=== PATIENT | female | born 1940 | race Caucasian/White ===

== ENCOUNTER 2023-07-21 11:25 | Emergency (ER) | payer MEDICARE, SELFPAY ==
--- NOTE | ~2023-07-21 | XR_ITS ---
XR ankle RT min 3V DATE: 07/21/2023 11:59 INDICATION: Anteromedial pain, swelling. No known injury. TECHNIQUE: 4 views COMPARISON: None FINDINGS: There is diffuse soft tissue swelling of the ankle. No fracture or dislocation of the ankle or disruption of the ankle mortise. No periosteal reaction or bone destruction. Mild plantar and posterior calcaneal enthesopathy. IMPRESSION: Generalized soft tissue swelling Reviewed, dictated and finalized at location [facility]. [facility] [employer]
[2023-07-21 11:35] VITALS: BP 125/53; PULSE 94; RESP 16; TEMP 36.5; O2SAT 96
--- NOTE | 2023-07-21 11:50 | PC.NURSE ---
to xray via [place] by [employer] [facility]
--- NOTE | 2023-07-21 12:07 | ED.LOWEXIN ---
HPI - Extremity Injury (Lower) General Chief Complaint: Extremity Injury, Lower Stated Complaint: Right Foot Injury History of Present Illness HPI Narrative: Patient presents with right foot pain. Patient denies any re-injury to the foot. Patient states she started with redness to the foot and went to an urgent care and was started on doxycycline but instructed that they could not rule out a DVT to the lower extremity. Patient later the went to the emergency room and had a negative ultrasound and was told to continue doxycycline. Patient has also been followed by her primary care provider and told her to continue the doxycycline. Patient presents today having been on the doxycycline for 48 hours that she has increased redness and swelling to the right lower extremity. Related Data Home Medications Medication Instructions Recorded Confirmed albuterol sulfate 90 mcg/actuation inhalation 07/21/23 aerosol inhaler atorvastatin 40 mg tablet mg 07/21/23 clopidogrel 75 mg tablet mg 07/21/23 doxycycline hyclate 100 mg capsule mg 07/21/23 levothyroxine 88 mcg tablet mcg 07/21/23 tramadol 50 mg tablet mg 07/21/23 umeclidinium 62.5 mcg-vilanterol inhalation 07/21/23 25 mcg/actuation powdr for inhalation (Anoro Ellipta) Allergies Allergy/AdvReac Type Severity Reaction Status Date / Time Penicillins Allergy Intermediate Hives / Unverified 10/30/14 14:03 Red Face tetanus immune globulin Allergy Intermediate Unverified 10/30/14 14:03 Review of Systems Review of Systems: CONSTITUTIONAL: Denies fever, chills, or sweats. EYES: Denies visual changes, redness, or discharge. ENT: Denies rhinorrhea, congestion, sore throat, or otalgia. CARDIOVASCULAR: Denies chest pain, palpitations, or edema. RESPIRATORY: Denies cough or dyspnea. GASTROINTESTINAL: Denies abdominal pain, nausea, vomiting, or diarrhea. GENITOURINARY: Denies dysuria or hematuria. SKIN: Denies rash or itching. MUSCULOSKELETAL: Denies back pain, joint pain, or myalgia. NEUROLOGIC: Denies headache, numbness, or weakness. PSYCHIATRIC: Denies anxiety or depression. PMFSH Comments At time of signature, agree with nursing past medical, surgical, social and family history. There is no relevant family history pertinent to the presenting complaint Exam Narrative: GENERAL: Well-appearing, well-nourished, and in no acute distress. HEAD: Normocephalic, atraumatic. EYES: PERRLA and EOMI. ENT: Nares clear, no rhinorrhea or epistaxis. Mucous membranes moist. NECK: Supple. CHEST: Clear to auscultation. No respiratory distress. HEART: Regular rate and rhythm. No murmur heard. Normal peripheral pulses. ABDOMEN: Soft, nontender, nondistended, normal active bowel sounds. EXTREMITIES: Normal range of motion. No edema. SKIN: Warm, dry, no rash. Top of right foot 2 cm area with redness, tender to touch no streaking no drainage noted. NEURO: No focal deficits. Alert and oriented x3. Rip Coma Scale Eye Opening: Spontaneous 4 Rip Coma Scale Motor: Obeys Commands 6 Rip Coma Scale Verbal: Oriented 5 Rip Coma Scale Total 15 Course Course Level of Care: Express Care Visit Vital Signs Vital signs: Vital Signs Temperature 36.5 C 07/21/23 11:35 Pulse Rate 94 07/21/23 11:35 Respiratory Rate 16 07/21/23 11:35 Blood Pressure 125/53 L 07/21/23 11:35 Pulse Oximetry 96 07/21/23 11:35 Oxygen Delivery Room Air 07/21/23 11:35 Temperature 36.5 C 07/21/23 11:35 Pulse Rate 94 07/21/23 11:35 Respiratory Rate 16 07/21/23 11:35 Blood Pressure 125/53 L 07/21/23 11:35 Pulse Oximetry 96 07/21/23 11:35 Oxygen Delivery Room Air 07/21/23 11:35 Discharge Plan Discharge Clinical Impression: Contusion of foot, right Patient Disposition: Home, Self-Care Condition: Stable Instructions: Foot Contusion (ED) Additional Instructions: Ice to the area 20-30 minutes 4-6 times a day Elevate above he
== END 2023-07-21 12:57 | disposition home or self-care (01) ==
PROVIDERS: Emergency Provider Nurse Practitioner Family; PCP Family Medicine
DX: S90.31XA Contusion of right foot, initial encounter (principal); Z79.899 Other long term (current) drug therapy; X58.XXXA Exposure to other specified factors, initial encounter
CPT/HCPCS: 73610; 99213; G0463

== ENCOUNTER 2024-11-11 10:17 | Outpatient (CLI) | payer MEDICARE, SELFPAY ==
--- OUTSIDE RECORDS SUMMARY | 2024-11-11 11:27 | XMS_ITS | Encounter Summary ---
Author Organization [facility] Address [address] [place] [address] Care Team Providers Care Home Visit Field Care Manager Name Role Phone Unavailable Primary Care Provider Unavailabl e Encounter Details Date Type Department Care Team (Late st Contact Info) Description 08/28/2023 Lab Requisition [facility] - DermPath Lab [address] [place] [id number] Steve Ambriz Jr., MD [address] [place] [address] Social History Tobacco Use Types Packs/Day Years Used Date Smoking Tobacco: Never Assessed Comments Unknown Sex and Gender Information Value Date Recorded Sex Assigned at Not on file Legal Sex Female 11:18 AM [employer] Gender Identity Not on file Sexual Orientation Not on file documented as of this encounter Plan of Treatment Not on file documented as of this encounter Procedures Procedure Name Priority Date/Time Associated Diagnosis Comments DERMATOPATHOLOGY Routine 08/27/2023 3:33 AM [employer] documented in this encounter Results * DERMATOPATHOLOGY (08/27/2023 3:33 AM [employer]) Case Report Dermatopathology Report Case: [id number] Authorizing Provider: Steve Ambriz Jr., MD Collected: 08/27/2023 03:33 AM Ordering Location: [facility] Lab Received: 08/28/2023 11:56 AM Pathologist: Ivonne Rogers MD Specimen: Skin, right middle finger distal interphalangeal joint 2:49 PM [facility] Final Diagnosis Specimen A. SKIN, right middle finger distal interphalangeal joint: DIGITAL MYXOID (MUCOUS) CYST (M67.40) 2:49 PM [facility] Clinical History Digital Mucous Cyst vs wart,ISK. 4 2:49 PM [facility]MAT[facility] Gross Description Specimen A: Received is one formalin filled container labeled with the patient's name and designated right middle finger distal interphalangeal joint. The specimen consists of a shave biopsy measuring 6x5x1 mm. Jar 0. 4 2:49 PM [facility]ERMATOPATHOLOGY [facility] Microscopic Description Specimen A. SKIN, right middle finger distal interphalangeal joint: There is mucinous degeneration of the superficial dermis with minimal inflammation. 4 2:49 PM [facility]MATOPATH[facility] Disclaimer An external and internal positive and negative controls are appropriate for the histochemical, immunohistochemical and immunofluorescence stain(s) in this case (if any), except where stated explicitly. The performance characteristics of the stain(s) cited in this report were developed and its performance characteristic determined by the Dermatopathology Laboratory at [facility], directed by Dr. Cece Queen. These tests need not be, and therefore are not, approved by the [place] Food and Drug Administration. The tests are used for clinical purposes. Billing Codes Specimen Charges Stain Charges 33547 1 4 2:49 PM [facility]MAT[facility]ATH[facility] Embedded Images 4 2:49 PM [facility] Pathology/Cytolo gy TISSUE SPECIMEN FROM SKIN / Unknown 08/27/2023 3:33 AM [employer] 08/28/2023 11:56 AM [employer] Steve Ambriz Jr., MD LAB - PATHOLOGY/CYTOLOG Y ORDERABLES Final Result DERMATOPATHOLOGY LABORATORY [facility] - Department of Dermatology [address] [phone] documented in this encounter Visit Diagnoses Not on filedocumented in this encounter
--- OUTSIDE RECORDS SUMMARY | 2024-11-11 11:27 | XMS_ITS ---
Author Name Auto Generated, Auto Generated Organization [facility] Address [address] [place] [address] Phone [phone] Care Team Providers Care Survey Field Technician Name Role Phone Val Hart Unavailable Marcia Pugh Unavailable Fortunato Campo Unavailable [phone] Functional Status No Results Mental Status No Results Allergies and Intolerances Name Onset Date Reaction Severity Tetanus Vaccines and Toxoid (Allergy) SatMar 04 18:32:00 EDT 2023 Penicillins (Allergy) SatMar 04 18:32:00 EDT 20 24 magnesium sulfate (bulk) (Allergy) SatMar 04 18 :32:00 EDT 2023 Encounters Program Name Primary Diagnosis Admission Date/Time Dis charge Date/Time [facility] SatMar 04 14:00:00 EDT 2023Mar 25 11:30:00 EDT 2023 Medications Medication Directions Start Date End Date Stimulant Laxative Plus 8.6 mg-50 mg tablet 1 tablet TABLET Oral PRN Every 2 Days Indication: Constipation SatMar 17 18:31:00 EDT 2023Mar 25 01:00:00 EDT 2023 HYDROcodone 5 mg-acetaminophen 325 mg tablet 1 tablet TABLET Oral PRN Every 4 Hours Indication: Pain SatMar 10 17:00:00 EDT 2023Mar 25 01:00:00 EDT 2023 furosemide 20 mg tablet 1 tablet TABLET Oral 1 Time Daily for 1 Day Indication: Edema SatMar 09 07:00:00 ED2023Mar 10 06:59:00 EDT 2023 furosemide 20 mg tablet 1 tablet TABLET Oral 1 Time Daily for 2 Days Indication: Edema SatMar 10 07:00:00 EDT 2023Mar 12 06:59:00 ED2023 potassium chloride ER 10 mEq tablet,extended release 1 tablet TABLET, EXTENDED RELEASE Oral 1 Time Daily for 1 Day Indication: Supplement SatMar 09 07:00:00 EDT 2023Mar 10 06:59:00 EDT 2023 potassium chloride ER 10 mEq tablet,extended release 1 tablet TABLET, EXTENDED RELEASE Oral 1 Time Daily for 2 Days Indication: Supplement SatMar 10 07:00:00 EDT 2023Mar 12 06:59:00 EDT 2023 vitamin E acetate 134 mg (200 unit) capsule 1 capsule CAPSULE Oral 1 Time Daily Indication: Supplement SatMar 07 15:00:00 ED2023Mar 25 01:00:00 ED2023 ferrous sulfate 325 mg (65 mg iron) tablet,delayed release 1 tablet TABLET, DELAYED RELEASE (ENTERIC COATED) Oral 1 Time Daily Indication: Anemia *TAKE WITH FOOD* SatMar 05 12:00:00 ED2023Mar 25 01:00:00 ED2023 Ventolin HFA 90 mcg/actuation aerosol inhaler 2 puffs HFA AEROSOL WITH ADAPTER (GRAM) Inhalation PRN Every 4 Hours Indication: Wheezing/SOB SatMar 04 18:30:00 2023Mar 25 01:00:00 ED2023 ascorbic acid (vitamin C) 500 mg capsule 1 capsule CAPSULE Oral 1 Time Daily Indication: Supplement SatMar 04 18:30:00 2023Mar 25 01:00:00 ED2023 aspirin 81 mg tablet,delayed release 1 tablet TABLET, DELAYED RELEASE (ENTERIC COATED) Oral 2 Times Daily for 53 Days Indication: Blood thinner. Take until 04/26/24 then resume once per day and plavix SatMar 04 17:00:00 2023Mar 25 01:00:00 2023 cetirizine 10 mg tablet 1 tablet TABLET Oral 1 Time Daily Indication: Allergies SatMar 04 18:42:00 2023Mar 25 01:00:00 2023 clopidogreL 75 mg tablet 1 tablet TABLET Oral 1 Time Daily Indication: DVT prophylaxis SatMar 04 18:40:00 2023Mar 25 01:00:00 EDT 2023 cyanocobalamin (vit B-12) 1,000 mcg tablet 1 tablet TABLET Oral 1 Time Daily Indication: Supplement SatMar 04 18:40:00 EDT 2023Mar 25 01:00:00 EDT 2023 ferrous sulfate 325 mg (65 mg iron) tablet,delayed release 1 tablet TABLET, DELAYED RELEASE (ENTERIC COATED) Oral 1 Time Daily Indication: Anemia SatMar 04 18:40:00 EDT 2023 [facility] Mar 05 12:14:00 EDT 2023 glucosamine HCL 1,500 mg tablet 1 tablet TABLET Oral 1 Time Daily Indication: Supplement SatMar 04 18:40:00 EDT 2023Mar 25 01:00:00 EDT 2023 levothyroxine 88 mcg tablet 1 tablet TAB LET Oral 1 Time Daily Indication: Hypothyroid SatMar 04 18:40:00 EDT 2023Mar 25 01:00:00 EDT 2023 multivitamin tablet 1 tablet TABLET Oral 1 Time Daily Indication: Supplement SatMar 04 18:50:00 EDT 2023Mar 25 01:00:00 EDT 2023 ondansetron 4 mg disintegrating tablet 1 tablet TABLET,DISINTEGRATING Oral PRN Every 6 Hours Indication: Nausea/Vomiting SatMar 04 18:40:00 EDT 2023Mar 25 01:00:00 EDT 2023 pantoprazole 40 mg tablet,delayed release 1 tablet TABLET, DELAYED RELEASE (ENTERIC COATED) Oral 2 Times Daily Indication: GERD SatMar 04 18:50:00 EDT 2023Mar 25 01:00:00 EDT 2023 Stimulant Laxative Plus 8.6 mg-50 mg tablet 1 tablet TABLET Oral 2 Times Daily Indication: Constipation SatMar 04 18:50:00 EDT 2023 e Mar 03 18:37:00 EDT 2023 traMADoL 50 mg tablet 1 tablet TABLET Or al PRN Every 6 Hours Indication: Pain SatMar 04 19:00:00 EDT 2023Mar 25 01:00:00 EDT 2023 Anoro Ellipta 62.5 mcg-25 mcg/actuation powder for inhalation 1 puff BLISTER, WITH INHALATION DEVICE Inhalation 1 Time Daily Indication: Asthma SatMar 04 18:50:00 EDT 2023Mar 25 01:00:00 EDT 2023 vitamin E acetate 134 mg (200 unit) capsule 1 capsule CAPSULE Oral 1 Time Daily Indication: Supplement SatMar 04:00:00 EDT 2023 [facility] Mar 07 09:58:00 EDT 2023 TubersoL 5 tub. unit/0.1 mL intradermal injection solution 0.1 ml VIAL (ML) Intradermal 1 Time Weekly for 2 Weeks Indication: . 1st injection on admission, then one week after. Read between 48 and 72 hours SatMar 04 19:00:00 EDT 2023Mar 18 18:59:00 EDT 2023 TubersoL 5 tub. unit/0.1 mL intradermal injection solution Read Results VIAL (ML) Other 1 Time Weekly for 2 Weeks Indication: . Read results between 48-72 hours after 1st and 2nd (1 week apart). If positive do chest x-ray. 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/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* Code: * Start Date: SatMar 04 00:00:00 EDT 2023 * End Date: * Text: * Hypothyroidism, unspecified* Code: * Start Date: SatMar 04 00:00:00 EDT 2023 * End Date: * Text: * Gastro-esophageal reflux disease without esophagitis* Code: * Start Date: SatMar 04 00:00:00 EDT 2023 * End Date: * Text: * half-way (current) use of opiate analgesic* Code: * Start Date: SatMar 04 00:00:00 EDT 2023 * End Date: * Text: * Chronic obstructive pulmonary disease, unspecified* Code: * Start Date: SatMar 04 00:00:00 EDT 2023 * End Date: * Text: * Anemia, unspecified* Code: * Start Date: SatMar 04 00:00:00 EDT 2023 * End Date: * Text: * Unspecified osteoarthritis, unspecified site* Code: * Start Date: SatMar 04 00:00:00 EDT 2023 * End Date: * Text: * Personal history of other malignant neoplasm of skin* Code: * Start Date: SatMar 04 00:00:00 EDT 2023 * End Date: * Text: * Theron Hernandez's wishes will be followed (Advanced Directive/Code Status).* Code: * Start Date: SatMar 06 00:00:00 EDT 2023 * End Date: * Text: Theron Hernandez's wishes will be followed (Advanced Directive/Code Status). * Theron Hernandez will be involved in goal development to the best of his or her ability.* Code: * Start Date: SatMar 06 00:00:00 EDT 2023 * End Date: * Text: OTBINSocial Rosa Hernandez will be involved in goal development to the best of his or her ability. * Theron Hernandez has family/friends who are supportive.* Code: * Start Date: SatMar 06 00:00:00 EDT 2023 * End Date: * Text: Theron Hernandez has family/friends who are supportive. * Theron Hernandez's mobility level is different than prior level due to current medical condition.* Code: * Start Date: SatMar 06 00:00:00 EDT 2023 * End Date: * Text: Theron Hernandez's mobility level is different than prior level due to current medical condition. * TOBINSocial Rosa Hernandez will be involved in discharge planning.* Code: * Start Date: SatMar 06 00:00:00 EDT 2023 * End Date: * Text: TOBINSocial Rosa Hernandez will be involved in discharge planning. Vital Signs Vital Sign Measurement Date Systolic Blood Pressure 124.00 mm[Hg] SatMar 25 12:01:33 EDT 2023 Diastolic Blood Pressure 52.00 mm[Hg] SatMar 25 12:01:33 EDT 2023 Heart Rate 100.00 /min Wed Sep 11 12:01 :33 EDT 2023 Body temperature 98.40 [degF] Wed Sep 11 12:0 1:33 EDT 2023 Respiratory rate 18.00 /min Wed Sep 11 12:0 1:33 EDT 2023 Pulse Oximetry 94.00 % Wed Sep 11 12:01 :33 EDT 2023 Systolic Blood Pressure 137.00 mm[Hg] Tue Sep 10 19:56:09 EDT 2023 Diastolic Blood Pressure 63.00 mm[Hg] Tue Sep 10 19:56:09 EDT 2023 Heart Rate 80.00 /min Tue Sep 10 19:56 :09 EDT 2023 Body temperature 97.10 [degF] Tue Sep 10 19:5 6:09 EDT 2023 Respiratory rate 20.00 /min e Sep 10 19:5 6:09 EDT 2023 Pulse Oximetry 96.00 % e Sep 10 19:56 :09 EDT 2023 Body weight 184.80 [lb_av] e Sep 10 15:50 :33 EDT 2023 Systolic Blood Pressure 114.00 mm[Hg] Tue Sep 10 09:12:20 EDT 2023 Diastolic Blood Pressure 64.00 mm[Hg] e Sep 10 09:12:20 EDT 2023 Heart Rate 96.00 /min e Sep 10 09:12 :20 EDT 2023 Body temperature 97.80 [degF] e Sep 10 09:1 2:20 EDT 2023 Respiratory rate 20.00 /min e Sep 10 09:1 2:20 EDT 2023 Pulse Oximetry 93.00 % e Sep 10 09:12 :20 EDT 2023 Systolic Blood Pressure 124.00 mm[Hg] Tue Sep 10 00:02:19 EDT 2023 Diastolic Blood Pressure 59.00 mm[Hg] Tue Sep 10 00:02:19 EDT 2023 Heart Rate 90.00 /min Tue Sep 10 00:02 :19 EDT 2023 Body temperature 97.30 [degF] Tue Sep 10 00:0 2:19 EDT 2023 Respiratory rate 20.00 /min Tue Sep 10 00:0 2:19 EDT 2023 Pulse Oximetry 94.00 % Tue Sep 10 00:02 :19 EDT 2023 Systolic Blood Pressure 115.00 mm[Hg] [facility] Sep 09 14:29:19 EDT 2023 Diastolic Blood Pressure 66.00 mm[Hg] Mon Sep 09 14:29:19 EDT 2023 Heart Rate 88.00 /min [facility] Sep 09 14:29 :19 EDT 2023 Body temperature 97.70 [degF] Mon Sep 09 14:2 9:19 EDT 2023 Respiratory rate 18.00 /min [facility] Sep 14:2 9:19 EDT 2023 Pulse Oximetry 95.00 % [facility] Sep 09 14:29 :19 EDT 2023 Body weight 184.00 [lb_av] [facility] Sep 09 10:23 :21 EDT 2023 Systolic Blood Pressure 121.00 mm[Hg] Sun Sep 08 23:39:23 EDT 2023 Diastolic Blood Pressure 64.00 mm[Hg] [place] [facility] Sep 08 23:39:23 EDT 2023 Heart Rate 89.00 /min [place] [facility] Sep 08 23:39 :23 EDT 2023 Body temperature 97.30 [degF] [place] [facility] Sep 08 23:3 9:23 EDT 2023 Respiratory rate 18.00 /min [place] [facility] Sep 08 23:3 9:23 EDT 2023 Pulse Oximetry 95.00 % [place] [facility] Sep 08 23:39 :23 EDT 2023 Body weight 183.80 [lb_av] [place] [facility] Sep 08 10:30 :38 EDT 2023 Systolic Blood Pressure 112.00 mm[Hg] [place] [facility] Sep 08 09:43:07 EDT 2023 Diastolic Blood Pressure 53.00 mm[Hg] [place] [facility] Sep 08 09:43:07 EDT 2023 Heart Rate 90.00 /min [place] [facility] Sep 08 09:43 :07 EDT 2023 Body temperature 97.00 [degF] Sun Sep 08 09:4 3:07 EDT 2023 Respiratory rate 18.00 /min Sun Sep 08 09:4 3:07 EDT 2023 Pulse Oximetry 95.00 % Sun Sep 08 09:43 :07 EDT 2023 Systolic Blood Pressure 114.00 mm[Hg] [facility] Sep 07 16:14:32 EDT 2023 Diastolic Blood Pressure 67.00 mm[Hg] [facility] Sep 07 16:14:32 EDT 2023 Heart Rate 66.00 /min [facility] Sep 07 16:14 :32 EDT 2023 Body temperature 97.20 [degF] [facility] Sep 07 16:1 4:32 EDT 2023 Respiratory rate 18.00 /min [facility] Sep 07 16:1 4:32 EDT 2023 Pulse Oximetry 97.00 % Sat Sep 07 16:14 :32 EDT 2023 Body weight 183.60 [lb_av] Sat Sep 07 11:06 :25 EDT 2023 Systolic Blood Pressure 117.00 mm[Hg] Sat Sep 07 09:28:10 EDT 2023 Diastolic Blood Pressure 52.00 mm[Hg] Sat Sep 07 09:28:10 EDT 2023 Heart Rate 88.00 /min Sat Sep 07 09:28 :10 EDT 2023 Body temperature 97.30 [degF] Sat Sep 07 09:2 8:10 EDT 2023 Respiratory rate 18.00 /min Sat Sep 07 09:2 8:10 EDT 2023 Pulse Oximetry 0.00 % [facility] Sep 07 09:28 :10 EDT 2023 Systolic Blood Pressure 116.00 mm[Hg] Sat Sep 07 00:21:23 EDT 2023 Diastolic Blood Pressure 63.00 mm[Hg] Sat Sep 07 00:21:23 EDT 2023 Heart Rate 96.00 /min [facility] Sep 07 00:21 :23 EDT 2023 Body temperature 97.30 [degF] [facility] Sep 07 00:2 1:23 EDT 2023 Respiratory rate 20.00 /min [facility] Sep 07 00:2 1:23 EDT 2023 Pulse Oximetry 98.00 % [facility] Sep 07 00:21 :23 EDT 2023 Systolic Blood Pressure 103.00 mm[Hg] Sat Sep 06 11:49:58 EDT 2023 Diastolic Blood Pressure 57.00 mm[Hg] Fri Sep 06 11:49:58 EDT 2023 Systolic Blood Pressure 86.00 mm[Hg] Sat Sep 06 11:46:38 EDT 2023 Diastolic Blood Pressure 50.00 mm[Hg] Sat Sep 11:46:38 EDT 2023 Heart Rate 92.00 /min Sat Sep 06 11:46 :38 EDT 2023 Body temperature 98.00 [degF] Sat Sep 11:4 6:38 EDT 2023 Respiratory rate 18.00 /min Sat Sep 11:4 6:38 EDT 2023 Pulse Oximetry 95.00 % Sat Sep 11:46 :38 EDT 2023 Body weight 185.00 [lb_av] Sat Sep 06 10:29 :34 EDT 2023 Systolic Blood Pressure 111.00 mm[Hg] Sat Sep 06 00:28:55 EDT 2023 Diastolic Blood Pressure 54.00 mm[Hg] SatMar 20 00:28:55 EDT 2023 Heart Rate 88.00 /min SatMar 20 00:28 :55 EDT 2023 Body temperature 97.50 [degF] SatMar 20 00:2 8:55 EDT 2023 Respiratory rate 18.00 /min SatMar 20 00:2 8:55 EDT 2023 Pulse Oximetry 97.00 % SatMar 20 00:28 :55 EDT 2023 Systolic Blood Pressure 107.00 mm[Hg] [facility] Sep 05 09:21:26 EDT 2023 Diastolic Blood Pressure 57.00 mm[Hg] [facility] Sep 05 09:21:26 EDT 2023 Heart Rate 96.00 /min [facility] 05 09:21 :26 EDT 2023 Body temperature 97.30 [degF] [facility] Sep 09:2 1:26 EDT 2023 Respiratory rate 18.00 /min [facility] 09:2 1:26 EDT 2023 Pulse Oximetry 94.00 % [facility] 09:21 :26 EDT 2023 Systolic Blood Pressure 122.00 mm[Hg] [facility] Sep 04 21:21:33 EDT 2023 Diastolic Blood Pressure 54.00 mm[Hg] [facility] Sep 04 21:21:33 EDT 2023 Heart Rate 96.00 /min [facility] Sep 04 21:21 :33 EDT 2023 Body temperature 97.70 [degF] [facility] Sep 04 21:2 1:33 EDT 2023 Respiratory rate 18.00 /min [facility] Sep 04 21:2 1:33 EDT 2023 Pulse Oximetry 96.00 % [facility] Sep 04 21:21 :33 EDT 2023 Body weight 180.60 [lb_av] [facility] Sep 04 11:48 :34 EDT 2023 Systolic Blood Pressure 127.00 mm[Hg] Wed Sep 04 08:45:34 EDT 2023 Diastolic Blood Pressure 63.00 mm[Hg] Wed Sep 04 08:45:34 EDT 2023 Heart Rate 103.00 /min Wed Sep 04 08:45 :34 EDT 2023 Body temperature 98.40 [degF] Wed Sep 04 08:4 5:34 EDT 2023 Respiratory rate 17.00 /min Wed Sep 04 08:4 5:34 EDT 2023 Pulse Oximetry 93.00 % [facility] Sep 04 08:45 :34 EDT 2023 Systolic Blood Pressure 121.00 mm[Hg] [facility] 23:43:22 EDT 2023 Diastolic Blood Pressure 57.00 mm[Hg] [facility] 23:43:22 EDT 2023 Heart Rate 80.00 /min [facility] 23:43 :22 EDT 2023 Body temperature 97.80 [degF] [facility] 23:4 3:22 EDT 2023 Respiratory rate 18.00 /min [facility] 23:4 3:22 EDT 2023 Pulse Oximetry 98.00 % [facility] 23:43 :22 EDT 2023 Body weight 182.80 [lb_av] [facility] 17:14 :36 EDT 2023 Systolic Blood Pressure 114.00 mm[Hg] [facility] 10:47:47 EDT 2023 Diastolic Blood Pressure 50.00 mm[Hg] [facility] 10:47:47 EDT 2023 Heart Rate 95.00 /min [facility] 10:47 :47 EDT 2023 Body temperature 96.90 [degF] [facility] 10:4 7:47 EDT 2023 Respiratory rate 18.00 /min [facility] 10:4 7:47 EDT 2023 Pulse Oximetry 96.00 % [facility] 10:47 :47 EDT 2023 Systolic Blood Pressure 130.00 mm[Hg] [facility] 02 23:27:41 EDT 2023 Diastolic Blood Pressure 69.00 mm[Hg] [facility] 02 23:27:41 EDT 2023 Heart Rate 98.00 /min [facility] 02 23:27 :41 EDT 2023 Body temperature 97.10 [degF] [facility] 02 23:2 7:41 EDT 2023 Respiratory rate 20.00 /min [facility] 02 23:2 7:41 EDT 2023 Pulse Oximetry 95.00 % [facility] 02 23:27 :41 EDT 2023 Body weight 183.00 [lb_av] [facility] Sep 02 11:41 :54 EDT 2023 Systolic Blood Pressure 125.00 mm[Hg] [facility] Sep 02 08:39:55 EDT 2023 Diastolic Blood Pressure 61.00 mm[Hg] [facility] Sep 02 08:39:55 EDT 2023 Heart Rate 84.00 /min [facility] Sep 02 08:39 :55 EDT 2023 Body temperature 96.60 [degF] [facility] 08:3 9:55 EDT 4 Respiratory rate 18.00 /min [facility] 08:3 9:55 EDT 2023 Pulse Oximetry 95.00 % [facility] 08:39 :55 EDT 2023 Systolic Blood Pressure 119.00 mm[Hg] [facility] 22:46:57 EDT 2023 Diastolic Blood Pressure 60.00 mm[Hg] [facility] 22:46:57 EDT 2023 Heart Rate 95.00 /min [facility] 22:46 :57 EDT 2023 Body temperature 97.60 [degF] [facility] 22:4 6:57 EDT 2023 Respiratory rate 18.00 /min [facility] 22:4 6:57 EDT 2023 Pulse Oximetry 98.00 % [facility] 22:46 :57 EDT 2023 Body weight 179.40 [lb_av] [facility] 13:55 :47 EDT 2023 Systolic Blood Pressure 100.00 mm[Hg] [facility] 09:58:21 EDT 2023 Diastolic Blood Pressure 45.00 mm[Hg] [facility] 09:58:21 EDT 2023 Heart Rate 100.00 /min [facility] 09:58 :21 EDT 2023 Body temperature 97.90 [degF] [facility] 09:5 8:21 EDT 2023 Respiratory rate 18.00 /min [facility] 09:5 8:21 EDT 2023 Pulse Oximetry 93.00 % [facility] 09:58 :21 EDT 2023 Systolic Blood Pressure 119.00 mm[Hg] [facility] Mar 14 22:48:28 EDT 2023 Diastolic Blood Pressure 54.00 mm[Hg] [facility] Mar 14 22:48:28 EDT 2023 Heart Rate 100.00 /min [facility] Mar 14 22:48 :28 EDT 2023 Body temperature 97.80 [degF] [facility] Mar 14 22:4 8:28 EDT 2023 Respiratory rate 18.00 /min [facility] Mar 14 22:4 8:28 EDT 2023 Pulse Oximetry 93.00 % [facility] Mar 14 22:48 :28 EDT 2023 Systolic Blood Pressure 114.00 mm[Hg] [facility] Mar 14 10:56:26 EDT 2023 Diastolic Blood Pressure 56.00 mm[Hg] [facility] Mar 14 10:56:26 EDT 2023 Body weight 182.40 [lb_av] [facility] Mar 14 10:56 :26 EDT 2023 Heart Rate 91.00 /min [facility] Mar 14 10:56 :26 EDT 2023 Body temperature 97.50 [degF] [facility] Mar 14 10:5 6:26 EDT 2023 Respiratory rate 18.00 /min [facility] Mar 14 10:5 6:26 EDT 2023 Pulse Oximetry 0.00 % [facility] Mar 14 10:56 :26 EDT 2023 Systolic Blood Pressure 110.00 mm[Hg] [facility] Mar 14 01:25:42 EDT 2023 Diastolic Blood Pressure 57.00 mm[Hg] [facility] Mar 14 01:25:42 EDT 2023 Heart Rate 94.00 /min [facility] Mar 14 01:25 :42 EDT 2023 Body temperature 97.30 [degF] [facility] Mar 14 01:2 5:42 EDT 2023 Respiratory rate 18.00 /min [facility] Mar 14 01:2 5:42 EDT 2023 Pulse Oximetry 95.00 % [facility] Mar 14 01:25 :42 EDT 2023 Body weight 180.90 [lb_av] SatMar 13 14:18 :37 EDT 2023 Systolic Blood Pressure 118.00 mm[Hg] SatMar 13 11:14:05 EDT 2023 Diastolic Blood Pressure 57.00 mm[Hg] SatMar 13 11:14:05 EDT 2023 Heart Rate 99.00 /min SatMar 13 11:14 :05 EDT 2023 Body temperature 97.50 [degF] SatMar 13 11:1 4:05 ED2023 Respiratory rate 20.00 /min SatMar 13 11:1 4:05 EDT 2023 Pulse Oximetry 95.00 % SatMar 13 11:14 :05 EDT 2023 Systolic Blood Pressure 116.00 mm[Hg] SatMar 12 19:54:39 EDT 2023 Diastolic Blood Pressure 55.00 mm[Hg] [facility] 19:54:39 EDT 2023 Heart Rate 77.00 /min SatMar 12 19:54 :39 EDT 2023 Body temperature 97.30 [degF] [facility] Mar 12 19:5 4:39 EDT 2023 Respiratory rate 18.00 /min [facility] Mar 12 19:5 4:39 EDT 2023 Pulse Oximetry 93.00 % [facility] 12 19:54 :39 EDT 2024 Body weight 181.80 [lb_av] [facility] 12 13:14 :53 EDT 2023 Systolic Blood Pressure 103.00 mm[Hg] SatMar 12 10:05:32 EDT 2023 Diastolic Blood Pressure 55.00 mm[Hg] SatMar 12 10:05:32 EDT 2023 Heart Rate 92.00 /min SatMar 12 10:05 :32 EDT 2023 Body temperature 97.10 [degF] [facility] 12 10:0 5:32 EDT 2023 Respiratory rate 18.00 /min SatMar 12 10:0 5:32 EDT 2023 Pulse Oximetry 93.00 % SatMar 12 10:05 :32 EDT 2023 Systolic Blood Pressure 98.00 mm[Hg] SatMar 11 19:58:21 EDT 2023 Diastolic Blood Pressure 56.00 mm[Hg] SatMar 11 19:58:21 EDT 2023 Heart Rate 102.00 /min SatMar 11 19:58 :21 EDT 2023 Body temperature 97.10 [degF] SatMar 11 19:5 8:21 EDT 2023 Respiratory rate 18.00 /min SatMar 11 19:5 8:21 EDT 2023 Pulse Oximetry 94.00 % SatMar 11 19:58 :21 EDT 2023 Body weight 180.20 [lb_av] SatMar 11 10:09 :33 EDT 2023 Systolic Blood Pressure 98.00 mm[Hg] SatMar 11 08:35:50 EDT 2023 Diastolic Blood Pressure 56.00 mm[Hg] SatMar 11 08:35:50 EDT 2023 Heart Rate 91.00 /min SatMar 11 08:35 :50 EDT 2023 Body temperature 97.80 [degF] SatMar 11 08:3 5:50 EDT 2023 Respiratory rate 18.00 /min SatMar 11 08:3 5:50 EDT 2023 Pulse Oximetry 93.00 % SatMar 11 08:35 :50 EDT 2023 Systolic Blood Pressure 110.00 mm[Hg] SatMar 11 00:14:14 EDT 2023 Diastolic Blood Pressure 69.00 mm[Hg] SatMar 11 00:14:14 EDT 2023 Heart Rate 95.00 /min SatMar 11 00:14 :14 EDT 2023 Body temperature 98.70 [degF] SatMar 11 00:1 4:14 EDT 2023 Respiratory rate 20.00 /min SatMar 11 00:1 4:14 EDT 2023 Pulse Oximetry 94.00 % SatMar 11 00:14 :14 EDT 2023 Body weight 183.40 [lb_av] SatMar 10 11:14 :39 EDT 2023 Systolic Blood Pressure 104.00 mm[Hg] SatMar 10 10:56:02 EDT 2023 Diastolic Blood Pressure 51.00 mm[Hg] SatMar 10 10:56:02 EDT 2023 Heart Rate 85.00 /min SatMar 10 10:56 :02 EDT 2023 Body temperature 98.00 [degF] SatMar 10 10:5 6:02 EDT 2023 Respiratory rate 18.00 /min SatMar 10 10:5 6:02 EDT 2023 Pulse Oximetry 93.00 % SatMar 10 10:56 :02 EDT 2023 Systolic Blood Pressure 108.00 mm[Hg] SatMar 10 00:49:24 EDT 2023 Diastolic Blood Pressure 53.00 mm[Hg] SatMar 10 00:49:24 EDT 2023 Heart Rate 88.00 /min SatMar 10 00:49 :24 EDT 2023 Body temperature 98.20 [degF] SatMar 10 00:4 9:24 EDT 2023 Respiratory rate 18.00 /min SatMar 10 00:4 9:24 EDT 2023 Pulse Oximetry 94.00 % SatMar 10 00:49 :24 EDT 2023 Body weight 181.40 [lb_av] SatMar 09 15:05 :13 EDT 2023 Systolic Blood Pressure 119.00 mm[Hg] SatMar 09 09:05:34 EDT 2023 Diastolic Blood Pressure 58.00 mm[Hg] SatMar 09 09:05:34 EDT 2023 Heart Rate 82.00 /min SatMar 09 09:05 :34 EDT 2023 Body temperature 97.90 [degF] SatMar 09 09:0 5:34 EDT 2023 Respiratory rate 18.00 /min SatMar 09 09:0 5:34 EDT 2023 Pulse Oximetry 93.00 % SatMar 09 09:05 :34 EDT 2023 Systolic Blood Pressure 121.00 mm[Hg] SatMar 09 00:13:42 EDT 2023 Diastolic Blood Pressure 58.00 mm[Hg] SatMar 09 00:13:42 EDT 2023 Heart Rate 98.00 /min SatMar 09 00:13 :42 EDT 2023 Body temperature 98.10 [degF] SatMar 09 00:1 3:42 EDT 2023 Respiratory rate 16.00 /min SatMar 09 00:1 3:42 EDT 2023 Pulse Oximetry 93.00 % SatMar 09 00:13 :42 EDT 2023 Body weight 182.70 [lb_av] [place] [facility] Mar 08 14:15 :07 EDT 2023 Systolic Blood Pressure 107.00 mm[Hg] [place] [facility] Mar 08 10:01:10 EDT 2023 Diastolic Blood Pressure 64.00 mm[Hg] [place] [facility] Mar 08 10:01:10 EDT 2023 Heart Rate 104.00 /min [facility] Mar 08 10:01 :10 EDT 2023 Body temperature 98.70 [degF] [facility] Mar 08 10:0 1:10 EDT 2023 Respiratory rate 18.00 /min [facility] Mar 08 10:0 1:10 EDT 2023 Pulse Oximetry 91.00 % [place] [facility] Mar 08 10:01 :10 EDT 2023 Systolic Blood Pressure 108.00 mm[Hg] [facility] Mar 07 19:45:25 EDT 2023 Diastolic Blood Pressure 62.00 mm[Hg] [facility] Mar 07 19:45:25 EDT 2023 Heart Rate 63.00 /min [facility] Mar 07 19:45 :25 EDT 2023 Body temperature 97.30 [degF] [facility] Mar 07 19:4 5:25 EDT 2023 Respiratory rate 14.00 /min [facility] Mar 07 19:4 5:25 EDT 2023 Pulse Oximetry 96.00 % [facility] Mar 07 19:45 :25 EDT 2023 Body weight 183.80 [lb_av] [facility] Mar 07 17:18 :25 EDT 2023 Systolic Blood Pressure 108.00 mm[Hg] [facility] Mar 07 09:20:57 EDT 2023 Diastolic Blood Pressure 59.00 mm[Hg] [facility] Mar 07 09:20:57 EDT 2023 Heart Rate 101.00 /min [facility] Mar 07 09:20 :57 EDT 2023 Body temperature 97.80 [degF] [facility] Mar 07 09:2 0:57 EDT 2023 Respiratory rate 18.00 /min [facility] Mar 07 09:2 0:57 EDT 2023 Pulse Oximetry 91.00 % [facility] Mar 07 09:20 :57 EDT 2023 Systolic Blood Pressure 113.00 mm[Hg] SatMar 07 00:58:29 EDT 2023 Diastolic Blood Pressure 58.00 mm[Hg] SatMar 07 00:58:29 EDT 2023 Heart Rate 98.00 /min SatMar 07 00:58 :29 EDT 2023 Body temperature 98.00 [degF] [facility] Mar 07 00:5 8:29 EDT 2023 Respiratory rate 18.00 /min [facility] Mar 07 00:5 8:29 EDT 2023 Pulse Oximetry 93.00 % [facility] Mar 07 00:58 :29 EDT 2023 Body weight 179.00 [lb_av] SatMar 06 11:35 :01 EDT 2023 Systolic Blood Pressure 120.00 mm[Hg] SatMar 06 11:31:04 EDT 2023 Diastolic Blood Pressure 55.00 mm[Hg] SatMar 06 11:31:04 EDT 2023 Heart Rate 65.00 /min SatMar 06 11:31 :04 EDT 2023 Body temperature 98.70 [degF] SatMar 06 11:3 1:04 EDT 2023 Respiratory rate 18.00 /min SatMar 06 11:3 1:04 EDT 2023 Pulse Oximetry 97.00 % SatMar 06 11:31 :04 EDT 2023 Systolic Blood Pressure 126.00 mm[Hg] SatMar 06 01:21:50 EDT 2023 Diastolic Blood Pressure 67.00 mm[Hg] SatMar 06 01:21:50 EDT 2023 Heart Rate 90.00 /min SatMar 06 01:21 :50 EDT 2023 Body temperature 97.90 [degF] SatMar 06 01:2 1:50 EDT 2023 Respiratory rate 20.00 /min SatMar 06 01:2 1:50 EDT 2023 Pulse Oximetry 94.00 % SatMar 06 01:21 :50 EDT 2023 Body weight 183.20 [lb_av] SatMar 05 14:26 :55 EDT 2023 Systolic Blood Pressure 128.00 mm[Hg] SatMar 05 10:31:24 EDT 2023 Diastolic Blood Pressure 50.00 mm[Hg] SatMar 05 10:31:24 EDT 2023 Heart Rate 98.00 /min SatMar 05 10:31 :24 EDT 2023 Body temperature 97.50 [degF] SatMar 05 10:3 1:24 EDT 2023 Respiratory rate 18.00 /min SatMar 05 10:3 1:24 EDT 2023 Pulse Oximetry 92.00 % SatMar 05 10:31 :24 EDT 2023 Systolic Blood Pressure 119.00 mm[Hg] SatMar 05 00:02:00 EDT 2023 Diastolic Blood Pressure 62.00 mm[Hg] SatMar 05 00:02:00 EDT 2023 Heart Rate 90.00 /min SatMar 05 00:02 :00 EDT 2023 Body temperature 98.70 [degF] SatMar 05 00:0 2:00 EDT 2023 Respiratory rate 18.00 /min SatMar 05 00:0 2:00 EDT 2023 Pulse Oximetry 99.00 % SatMar 05 00:02 :00 EDT 2023 Body Height 60.00 [in_i] SatMar 05 00:02 :00 EDT 2023 Reason for Referral
--- OUTSIDE RECORDS SUMMARY | 2024-11-11 11:27 | XMS_ITS | Clinical Summary ---
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 This disclosure is being madepursuant to the Care Everywhere program and may not contain all information available regarding this patient. Last updated 18.[facility] [employer] Social History Tobacco Use Types Packs/Day Years Used Date Smoking Tobacco: Never Assessed Comments Unknown Sex and Gender Information Value Date Recorded Sex Assigned at Not on file Legal Sex Female 11:18 AM [employer] Gender Identity Not on file Sexual Orientation Not on file Plan of Treatment Health Maintenance Due Date Last Done Comments BONE DENSITY TESTING 1940 MEDICARE AWV 12 MONTHS 1940 DTAP/TDAP/TD VACCINES (1 - Tdap) 1957 PNEUMOCOCCAL VACCINE 50+ (1 of 1 - PCV) 1988 ZOSTER VACCINE (1 of 2) 1988 Respiratory Syncytial Virus (RSV) Vaccine Pt: or over 60 yrs (1 - 1-dose 75+ series) 2013 COVID-19 VACCINE ( - 2023-2 5 season) 2024 DEPRESSION SCREENING 07/15/2024 INFLUENZA VACCINE (Season Ended) 2025 HEPATITIS B VACCINE Aged Out No longe r eligible based on patient's age to complete this topic HIB VACCINE Aged Out No longer eligi ble based on patient's age to complete this topic HPV VACCINE Aged Out No longer eligi ble based on patient's age to complete this topic MENINGOCOCCAL (Group B) VACC INE SHARED DECISION-MAKING Aged Out No longer eligibl e based on patient's age to complete this topic MENINGOCOCCAL GROUPS A/C/Y/W VACCINE Aged Out No longer eligible b ased on patient's age to complete this topic Insurance MEDICARE MEDICARE SUPPLEMENT PAYOR GENERIC
== END 2024-11-11 10:18 | disposition home or self-care (01) ==
LOC: ANHBWCAUD 10:18
PROVIDERS: PCP Family Medicine
DX: D32.9 Benign neoplasm of meninges, unspecified (principal); H90.3 Sensorineural hearing loss, bilateral
CPT/HCPCS: 92557; 92567